=== PATIENT | female | born 1995 | race Caucasian/White ===

== ENCOUNTER 2021-06-06 14:18 | Outpatient (CLI) | payer BC ==
[2021-06-07 13:22] LABS: SARS-CoV-2 PCR by NAA Not Detected (NotDetected)
== END 2021-06-06 14:19 | disposition home or self-care (01) ==
LOC: CSHLAB 14:18
PROVIDERS: ATTEND Obstetrics & Gynecology
DX: Z20.822 Contact with and (suspected) exposure to COVID-19 (principal)
CPT/HCPCS: U0003; U0005